=== PATIENT | female | born 1950 | race Caucasian/White ===

== ENCOUNTER 2023-04-03 23:08 | Emergency (ER) | payer MEDICARE, SELFPAY ==
[2023-04-03 23:11] VITALS: BP 156/84; PULSE 93; RESP 18; TEMP 36.4; O2SAT 97; BMI 36.6
--- NOTE | 2023-04-04 00:06 | CT_ITS ---
INDICATION: gi bleed EXAMINATION: CT ABDOMEN AND PELVIS WITH CONTRAST TECHNIQUE: Helically acquired images were obtained of the abdomen and pelvis with sagittal and coronal reconstructed images. Images were obtained in a single contrast phase with no precontrast images obtained. Individualized dose optimization techniques were used for this CT. IV contrast dosage and agent: 100 mL of Isovue-370. Oral contrast: None. COMPARISON: None. FINDINGS: VESSELS: No abdominal aortic aneurysm or dissection. LIVER: No evidence of a mass. No intrahepatic or extrahepatic biliary duct dilation. Diffuse decreased attenuation. GALLBLADDER: No calcified stones. No evidence of cholecystitis. PANCREAS: No focal solid or cystic mass. No evidence of pancreatitis. SPLEEN: Normal. ADRENAL GLANDS: 9.5 mm right adrenal gland nodule with no follow-up recommended. KIDNEYS AND URETERS: Simple right renal cyst with no follow-up recommended. No urinary tract stone. No hydronephrosis or hydroureter. No significant asymmetric perinephric stranding. URINARY BLADDER: Unremarkable. BOWEL: Diverticulosis with no evidence of diverticulitis. Appendix appears normal. No evidence of bowel obstruction. Linear hyperattenuation within the sigmoid colon seen on image numbers [id number] of series #2. REPRODUCTIVE ORGANS: No evidence of a pelvic mass. PERITONEUM: No intraabdominal free fluid or free air. LYMPH NODES: No pathologically enlarged mesenteric or retroperitoneal lymph nodes. ABDOMINAL WALL: Fat-containing left inguinal hernia. BONES: No acute abnormality. LOWER CHEST: 5.9 x 1.3 cm simple-appearing cystic lesion in the right anterior inferior mediastinum likely representing a pericardial cyst. Small hiatal hernia. CT/CTA Abd/Pelvis W/WO Contrast IMPRESSION: 1. Linear hyperattenuation within the distal sigmoid colon which may represent contrast extravasation from a gastrointestinal bleed. 2. Decreased attenuation of the liver which may represent fatty infiltration. 3. Diverticulosis with no evidence of diverticulitis. 4. 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 Electronically Signed: Jus Rodriguez DO at 1:40 EDT ,
[2023-04-04] MEDS: 0.9% Normal Saline 1,000 ML 999 ML IV (00:19)
[2023-04-04 00:32] LABS: Absolute Lymphocyte Count 2.73 X10^3/uL (0.83-4.51); Absolute Neutrophil Count 3.8 X10^3/uL (2.0-7.7); Basophil# 0.06 X10^3/uL; Basophil% 0.8 % (0-1); Eosinophil# 0.18 X10^3/uL; Eosinophils% 2.5 % (0-5); Hematocrit 39.5 % (37-47); Hemoglobin 12.7 g/dL (12.0-15.0); Lymphocyte # 2.73 X10^3/ul (0.83-4.51); Lymphocyte % 37.7 % (19-41); Mean Corp Hgb Conc 32.2 g/dL (32-36); Mean Corpuscular Hgb 31.4 pg (27.0-32.0); Mean Corpuscular Volume 97.8 fL (81-99); Mean Platelet Vol. 10.4 fl (6.2-12.0); Monocyte# 0.43 X10^3/uL; Monocyte% 5.9 % (0-10); NRBC Flagged by Analyzer 0 % (0-5); Neutrophil # 3.83 X10^3/uL (2.7-7.7); Neutrophil % 52.8 % (47-70); Platelet Count 254 K/mm3 (150-450); RBC Distribution Width SD 46.6 fl (35.1-43.9); Red Blood Count 4.04 M/mm3 (4.2-5.4); White Blood Count 7.3 K/mm3 (4.4-11.0)
[2023-04-04 01:01] LABS: AST(SGOT) 15 U/L (15-37); Alanine Aminotransfer ALT/SGPT 21 U/L (13-56); Albumin, Serum 3.2 g/dL (3.2-5.0); Alkaline Phosphatase 75 U/L (45-117); Anion Gap 4 (5-15); BUN 22 mg/dL (7-18); BUN/Creat Ratio 22.7 RATIO (10-20); Bilirubin, Direct 0.07 mg/dL (0.00-0.30); Calcium,Total 9.4 mg/dL (8.5-10.1); Chloride 109 mmol/L (98-107); Creatinine, Serum 0.97 mg/dL (0.55-1.02); EST Glomerular Filtration Rate 60 mL/min (>60); Est Glom Filt Rate - Afr Amer 72 mL/min (>60); Estimated Creatinine Clearance 38.98 ml/min; Globulin 3.2 g/dL (2.2-4.2); Glucose 131 mg/dL (74-106); Potassium 3.7 mmol/L (3.5-5.1); Protein, Total 6.4 g/dL (6.4-8.2); Sodium Level 141 mmol/L (136-145)
[2023-04-04 01:24] LABS: Prothrombin Time (Protime)PT. 13.5 SECONDS (11.7-14.9)
[2023-04-04 01:37] VITALS: RESP 18
[2023-04-04 02:05] VITALS: BP 155/75; BP 162/77; BP 164/78; PULSE 62; PULSE 63; PULSE 73
[2023-04-04 03:42] VITALS: BP 110/66; PULSE 72; RESP 18; TEMP 36.6; O2SAT 95
--- NOTE | 2023-04-04 04:30 | EDS_ITS ---
HPI History of Present Illness Chief Complaint: GI Bleed Informant: patient and family Narrative Narrative: Patient is a 72-year-old female with past medical history of hypertension hyperlipidemia and osteoporosis. She states that today she felt the urge to defecate and when she did so it was bright red blood in nature. She denies any history of bleeding disorder or blood thinner use or even taking a baby aspirin daily. She states that throughout the day roughly every 2-3 hours she would get the urge to defecate and then would do so and it be bright red blood. She states this is happened approximately 6 times throughout the evening and secondary to his high concern for acute blood loss and comes in for evaluation. She does state that her last colonoscopy was approximately 3 years ago and was reportedly normal [facility] Medical History (Updated 04/04/23 @ 05:[address] Tye Kwan, ) Bladder prolapse Hypertension Osteoporosis Allergy/AdvReac Type Severity Reaction Status Date / Time onion Allergy Migraine Verified 04/03/23 23:11 lisinopril [From Zestril] AdvReac cough Verified 04/03/23 23:11 Social History Smoking Status: Never smoker ROS ROS ED Constitutional Constitutional ED: Denies chills or fever(s) Eyes Eyes: Denies blurry vision or change in vision ENT ENT ED: Denies sore throat Cardiovascular Cardiovascular: Denies chest pain, palpitations or racing heartbeat Respiratory/Chest Respiratory/Chest: Denies cough or dyspnea Gastrointestinal Gastrointestinal: Reports melena; Denies abdominal pain, diarrhea, nausea or vomiting Genitourinary Genitourinary ED: Denies dysuria or hematuria Musculoskeletal Musculoskeletal: Denies myalgias Integumentary Denies rash Neurologic Neurologic: Denies headache(s) or weakness Hematologic/Lymphatic Hematologic/Lymphatic: Denies easy bleeding or easy bruising EXAM Physical Exam Const Vital Signs: 04/03/23 23:11 04/04/23 01:37 04/04/23 02:05 Temperature 97.6 F L Temperature Source Temporal Pulse Rate 93 Pulse Rate [Lying] 62 Pulse Rate [Sitting (for 1 minute prior to obtaining)] 63 Pulse Rate [Standing (for 1 minute prior to obtaining)] 73 Respiratory Rate 18 18 Blood Pressure 156/84 H Blood Pressure [Lying] 155/75 H Blood Pressure [Sitting (for 1 minute prior to obtaining)] 164/78 H Blood Pressure [Standing (for 1 minute prior to obtaining)] 162/77 H Blood Pressure Mean 108 Blood Pressure Mean [Lying] 101 Blood Pressure Mean [Sitting (for 1 minute prior to obtaining)] 106 Blood Pressure Mean [Standing (for 1 minute prior to obtaining)] 105 Pulse Ox 97 Oxygen Delivery Method Room Air Room Air 04/04/23 03:42 Temperature 97.9 F Temperature Source Oral Pulse Rate 72 Pulse Rate [Lying] Pulse Rate [Sitting (for 1 minute prior to obtaining)] Pulse Rate [Standing (for 1 minute prior to obtaining)] Respiratory Rate 18 Blood Pressure 110/66 Blood Pressure [Lying] Blood Pressure [Sitting (for 1 minute prior to obtaining)] Blood Pressure [Standing (for 1 minute prior to obtaining)] Blood Pressure Mean 80 Blood Pressure Mean [Lying] Blood Pressure Mean [Sitting (for 1 minute prior to obtaining)] Blood Pressure Mean [Standing (for 1 minute prior to obtaining)] Pulse Ox 95 Oxygen Delivery Method Room Air Positive well nourished, well developed and obese General Appearance ED: well developed Nutritional Appearance: obese HEENT Reports moist mucous membranes Eyes PERRL and EOMs intact bilaterally General Eye ED: Negative for pale conjunctiva or scleral icterus Neck supple Resp normal respiratory effort and clear to auscultation bilaterally Cardio regular rate and regular rhythm Rate: other Other Details: Radial pulses and carotid pulses are equal and symmetric GI normal to inspection, nondistended, normoactive bowel sounds, non-tender, non- distended and no masses GI Narrative: No voluntary guarding or rigidity. No pulsatile mass or fluid wave Auscultation: normoactive bowel sounds Palpation: soft Narrative: Patient has nonbleeding nonthrombosed external hemorrhoid. Rectal tone is normal but stool is maroon in color and Hemoccult positive. Extremity normal to inspection Neuro oriented x3 and CN's II-XII intact bilaterally Sensorium / Orientation: alert Psych mental status grossly normal Skin no rashes or lesions noted Skin Narrative: Capillary refill is less than 3 seconds MDM MDM MDM Narrative Medical decision making narrative: Patient presented to the ER slightly hypertensive consistent with her history and with a soft nonsurgical abdomen. However with recurrent bouts of bright red blood per rectum differential diagnosis is for diverticular bleeding versus internal or external hemorrhoid versus anal fissure versus diverticulosis versus brisk upper GI bleed. Basic blood work was obtained and shows a stable H&H as well as platelet count and bleeding times. BUN is just slightly elevated going against upper GI bleed. CTA did show a linear hyperdensity within the sigmoid colon that could relate to active GI bleed. This finding does correlate with her physical exam and history. GI is not on-call this weekend and therefore patient will need to be transferred. Secondary to this GI at [facility] was contacted and they do agree with transfer even though the patient is hemodynamically stable as her advanced age and recurrent bleeding makes her likely candidate for decompensation. Patient requested transfer to the [facility] and after talking to the transfer line she will be excepted at [facility] where she will have both access to GI and interventional radiology if needed. The patient has remained hemodynamically stable and in no acute distress for her entire ER stay History & Record Review Discussion w/independent historian: Patient and Family Lab Data Attestation: I reviewed the patient's lab results. Labs: Laboratory Results - last 24 hr 04/04/23 00:20 WBC 7.3 RBC 4.04 L Hgb 12.7 Hct 39.5 MCV 97.8 MCH 31.4 MCHC 32.2 RDW Std Deviation 46.6 H RDW Coeff of [place] 13.0 Plt Count 254 MPV 10.4 Immature Gran % (Auto) 0.300 Neut % (Auto) 52.8 Lymph % (Auto) 37.7 [place] % (Auto) 5.9 Eos % (Auto) 2.5 Baso % (Auto) 0.8 Absolute Neuts (auto) 3.8 Absolute Lymphs (auto) 2.73 Nucleated RBC % 0 PT 13.5 INR 1.0 APTT 34.0 Sodium 141 Potassium 3.7 Chloride 109 H Carbon Dioxide 28.0 Anion Gap 4 L BUN 22 H Creatinine 0.97 Estim Creat Clear Calc 38.98 Est GFR (MDRD) Af Amer 72 Est GFR (MDRD) Non-Af 60 BUN/Creatinine Ratio 22.7 H Glucose 131 H Calcium 9.4 Total Bilirubin 0.20 Direct Bilirubin 0.07 AST 15 ALT 21 Alkaline Phosphatase 75 Total Protein 6.4 Albumin 3.2 Globulin 3.2 Radiography Diagnostic Testing: Clinical Impression(s) from Imaging Studies Abdomen/Pelvis CTA 04/04/23 00:06 IMPRESSION: 1. Linear hyperattenuation within the distal sigmoid colon which may represent contrast extravasation from a gastrointestinal bleed. 2. Decreased attenuation of the liver which may represent fatty infiltration. 3. Diverticulosis with no evidence of diverticulitis. 4. 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 Electronically Signed: Jus Rodriguez DO at 1:40 EDT , Discharge Plan Triage Chief Complaint: GI Bleed ED Provider: Tye Kwan Dx/Rx/DC Orders Clinical Impression: Lower GI bleed, Diverticulosis, History of hypertension Primary Care Provider: Chen Horn Referrals: Chen Horn MD [Primary Care Provider] - Disposition Disposition: Acute Care Hospital Discharge Location: [facility]
[2023-04-04 05:45] VITALS: BP 148/74; PULSE 62; RESP 18; O2SAT 98
== END 2023-04-04 06:38 | disposition short-term general hospital (02) ==
PROVIDERS: Emergency Provider Emergency Medicine; PCP Internal Medicine; Visit Provider Emergency Medicine
DX: K92.2 Gastrointestinal hemorrhage, unspecified (principal); K57.90 Diverticulosis of intestine, part unspecified, without perforation or abscess without bleeding; I10 Essential (primary) hypertension
CPT/HCPCS: 74174; 80048; 80076; 82274; 85025; 85610; 85730; 96360; 99282; J7030; Q9967; A4216